=== PATIENT | female | born 1950 | race Caucasian/White ===

== ENCOUNTER 2022-03-10 09:27 | Emergency (ER) | payer MEDICARE, OTHER ==
[2022-03-10 10:22] LABS: HEMOGLOBIN 14.7 gm/dl (12.3-15.3); RED BLOOD COUNT 4.83 M/UL (4.00-5.10); WHITE BLOOD COUNT 7.8 K/UL (4.5-11.0)
[2022-03-10 10:43] LABS: BUN/CREATININE RATIO 24 (0-10)
== END 2022-03-10 11:34 | disposition home or self-care (01) ==
LOC: ER1 09:27
PROVIDERS: Emergency Medicine
DX: R60.0 Localized edema (principal); I10 Essential (primary) hypertension; E78.5 Hyperlipidemia, unspecified; E07.9 Disorder of thyroid, unspecified
CPT/HCPCS: 73564; 80053; 85025; 93971; 99284